=== PATIENT | male | born 1945 | race Caucasian/White ===

== ENCOUNTER 2017-08-16 06:32 | Day surgery (SDC) | payer OTHER ==
[2017-08-16] MEDS ORDERED: LIDOCAINE 1% 20 ML MDV ID STA (07:15)
[2017-08-16] MEDS ORDERED: DIPRIVAN 20 ML VIAL IVP ONE (08:48)
[2017-08-16] MEDS ORDERED: VERSED ONE (08:48)
[2017-08-16 10:21] VITALS: BP 118/67; TEMP 98.9
--- NOTE | 2017-08-17 08:59 | OP ---
INDICATIONS FOR PROCEDURE: 72 year old gentleman presents for colonoscopy examination. He has past history of polyps unknown histology with last colonoscopy 5 years ago. MEDICATIONS: SEE ANESTHESIA NOTES. PROCEDURE: COLONOSCOPY SNARE POLYPECTOMY. REPORT: The risks, benefits, alternatives and limitations were discussed in detail with the patient. Informed consent was obtained. After adequate sedation was achieved, a digital rectal exam revealed good tone, no masses. The colonoscope was introduced into the rectum and advanced under direct visual guidance to the cecum. The cecum was identified by the appendiceal orifice and IC valve. I then slowly withdrew the scope in circumferential manner and examined the mucosa quite carefully. I looked on the proximal and distal sides of the folds and flexures as best as possible. I was able to retroflex the scope in the right colon and the left colon to increase visualization. In the transverse colon there was sessile 9mm polyp that I was able to remove with snare technique. There were small mouth diverticuli scatter throughout the entire left colon. No other abnormalities were noted including on retroflex view of the anal canal. The prep was good and the withdraw time was 12 minutes 16 seconds. The patient tolerated the procedure well with stable vital signs and pulse oximetry throughout. IMPRESSION: 1. Single polyp removed from the transverse colon 2. Diverticulosis RECOMMENDATIONS: 1. High fiber diet 2. Office visit as needed 3. Await pathology results. If everything is benign as expected suggest repeat colonoscopy examination again in 5 years or sooner if signs or symptoms would indicate otherwise. CC: Dr. Abner NIEVES
== END 2017-08-16 10:15 | disposition home or self-care (01) ==
LOC: SURG 06:32
PROVIDERS: ATTEND Internal Medicine Gastroenterology
DX: Z09 Encounter for follow-up examination after completed treatment for conditions other than malignant neoplasm (principal); Z86.010 Personal history of colon polyps; D12.3 Benign neoplasm of transverse colon; K57.30 Diverticulosis of large intestine without perforation or abscess without bleeding

== ENCOUNTER 2017-09-12 14:01 | Inpatient (IN) | payer OTHER ==
[2017-09-12 15:13] VITALS: BMI 22.3
[2017-09-12] MEDS ORDERED: VISTARIL INJ IM PRN (15:18)
[2017-09-12] MEDS ORDERED: NITROSTAT SL PRN (15:18)
[2017-09-12] MEDS ORDERED: ATROPINE SULFATE PFS IVP PRN (15:18)
[2017-09-12] MEDS ORDERED: TYLENOL PO PRN (15:18)
[2017-09-12] MEDS ORDERED: NON-FORMULARY MEDICATION (Meloxicam [Meloxicam] 15 MG) PO SCH (16:30)
--- NOTE | 2017-09-12 16:31 | DI ---
EXAM: Chest two view, frontal and lateral views. HISTORY: Shortness of breath. COMPARISON: 01/22/2014. FINDINGS: The heart size is normal. There is no pulmonary vascular congestion. The lungs are clear save for calcified granulomatous changes. No pleural effusion or pneumothorax is seen. No acute os seous abnormality identified. Since the prior study, there has been no significant interval change. IMPRESSION: No acute cardiopulmonary process.
[2017-09-12] MEDS ORDERED: CALCIUM CARBONATE PO SCH (17:00)
[2017-09-12] MEDS ORDERED: NON-FORMULARY MEDICATION (Pravastatin Sodium [Pravastatin Sodium] 80 MG) PO SCH (17:00)
[2017-09-12] MEDS: DEXTROSE 5%-1/2NS IV SOLUTION 1,000 ML IV SCH (17:00)
[2017-09-12] MEDS ORDERED: VITAMIN D3 PO SCH (17:00)
[2017-09-12] MEDS ORDERED: [UNRECOGNIZED DRUG - OTHER] PO SCH (17:00)
[2017-09-12] MEDS: ROCEPHIN 1 GM in SODIUM CHLORIDE 50 ML IV SCH (17:52)
[2017-09-12] MEDS: NORVASC PO SCH (17:53)
[2017-09-12] MEDS: SOLU-CORTEF 250 MG IVP SCH ×3 (17:53→23:32)
[2017-09-12] MEDS: CALCIUM 500 + VIT D 200 MG TABLET PO SCH (17:53)
[2017-09-12] MEDS: PRAVACHOL PO SCH (17:54)
[2017-09-12] MEDS: ZITHROMAX PO SCH (17:54)
[2017-09-12] MEDS: ZEBETA PO SCH (17:54)
[2017-09-12] MEDS: XOPENEX 1.25 MG NEB SCH ×2 (18:35→23:52)
[2017-09-12] MEDS: TUSSIONEX PO SCH ×2 (20:44)
[2017-09-13] MEDS ORDERED: ASPIRIN EC PO SCH (05:00)
[2017-09-13] MEDS: HYZAAR 50-12.5 MG TAB PO SCH (05:14)
[2017-09-13] MEDS: ASPIRIN EC PO SCH (05:14)
[2017-09-13] MEDS: PROTONIX PO SCH (05:14)
[2017-09-13] MEDS: ZEBETA PO SCH ×2 (05:14→17:08)
[2017-09-13] MEDS: SOLU-CORTEF 250 MG IVP SCH ×4 (05:15→23:21)
[2017-09-13] MEDS: XOPENEX 1.25 MG NEB SCH ×4 (06:20→23:00)
[2017-09-13] MEDS: DEXTROSE 5%-1/2NS IV SOLUTION 1,000 ML IV SCH (07:16)
[2017-09-13] MEDS: TUSSIONEX PO SCH ×2 (08:52→20:32)
[2017-09-13] MEDS: ROCEPHIN 1 GM in SODIUM CHLORIDE 50 ML IV SCH (08:52)
[2017-09-13] MEDS: ZITHROMAX PO SCH (08:53)
--- NOTE | 2017-09-13 08:55 | PCM.PROG ---
Attending Provider: ATTENDING PROVIDER: Dr. VERN TAYLOR This patient is seen with Amy Chavez, Nurse Practitioner. DATE OF SERVICE: 09/13/17 SUBJECTIVE: This 72 year old WHITE/ M was hospitalized 09/12/17. The patient is sitting on side of bed, alert. Shortness of breath and wheezing have improved. Flu negative. Chest x-ray showed bronchitis. REVIEW OF SYSTEMS: CONSTITUTIONAL: No night sweats. No fatigue, malaise, lethargy. No fever or chills. HEENT: Eyes: No visual changes. No eye pain. No eye discharge. ENT: No runny nose. No epistaxis. No sinus pain. No odynophagia. No congestion. RESPIRATORY: Cough and wheeze. No hemoptysis. Shortness of breath is better. CARDIOVASCULAR: No angina symptoms. No CHF symptoms. No atypical chest pain for CAD. No palpitations. No orthopnea.. GASTROINTESTINAL: No abdominal pain. No nausea or vomiting. No diarrhea or constipation. No hematemesis. No hematochezia. GENITOURINARY: No urgency. No frequency. No dysuria. No hematuria. No obstructive symptoms. No discharge. No pain. No significant abnormal bleeding. MUSCULOSKELETAL: No musculoskeletal pain; no joint swelling. NEUROLOGICAL: Awake, alert, oriented to time, place and person. No headache. No neck pain. No syncope. No seizures. No dizziness. PSYCHIATRIC: Not anxious. No depression. No suicidal thoughts. No homicidal thoughts. SKIN: No rash. No lesions. No wounds. ENDOCRINE: No unexplained weight loss. No weight gain. HEMATOLOGIC/LYMPHATIC: No anemia. No purpura. No petechiae. No prolonged or excessive bleeding. No palpable lymph nodes. PHYSICAL EXAMINATION: GENERAL: The patient is awake, alert and oriented, sitting on side of bed in no distress. VITAL SIGNS: Temperature 97.7 F, Pulse 71, Respiratory Rate 19, BP 107/58, Pulse Ox 93% HEENT: Head normocephalic, atraumatic. Eyes: Extraocular muscles are intact. Pupils are equal, round and reactive to light and accommodation. Ears: No lesions. Nose appeared normal. Throat: No exudate or erythema. NECK: Supple. No JVD, no carotid bruit. No lymphadenopathy or thyromegaly. LUNGS: Diminished breath sounds bilaterally with faint expirator wheeze significantly improved. Percussion note normal. Chest symmetrical. HEART: S1, S2, no S3. No murmurs. No cyanosis or clubbing. No ascites. Pulses: Dorsalis pedis and posterior tibial pulses +1 to +2 both sides. ABDOMEN: Soft. Non-tender. Bowel sounds active. No CVA tenderness. No mass felt. EXTREMITIES: No edema. Full range of motion of all extremities, equal. NEUROLOGIC: No focal deficit. Cranial nerves II through XII are grossly intact. No headache, no double vision or headache. SKIN: Not dry. Intact. Turgor-normal. LYMPHATIC: No palpable lymph nodes/no lymphedema. MUSCULOSKELETAL: Normal joints with no swelling. Muscle tone is normal. LAB REVIEW: 09/13/17 04:30 09/13/17 04:30 09/13/17 04:30: Sodium 138, Potassium 3.9, Chloride 102, Carbon Dioxide 27, Anion Gap 12.9, BUN 11, Creatinine 0.85, Estimated GFR (MDRD) 89.00, BUN/ Creatinine Ratio 12.94, Glucose 165 H D, Calcium 9.3, Total Bilirubin 0.6, AST 13 L, ALT 21, Alkaline Phosphatase 71, Total Protein 6.0, Albumin 3.1 L, Globulin 2.9, Albumin/Globulin Ratio 1.07 09/13/17 04:30: WBC 8.57 D, RBC 4.52 L, Hgb 14.3, Hct 39.5 L, MCV 87.4, MCH 31.6 H, MCHC 36.2 H, RDW Coeff of Dorothy 13.1, Plt Count 180, Immature Gran % (Auto ) 0.6, Neut % (Auto) 88.0, Lymph % (Auto) 9.7 L, [place] % (Auto) 1.6, Eos % (Auto ) 0.0, Baso % (Auto) 0.1, Immature Gran # (Auto) 0.1, Neut # 7.5 H, Lymph # 0.8 , [place] # 0.1 L, Eos # 0.0, Baso # 0.0 09/12/17 23:05: Total Creatine Kinase 58, Troponin I 0.0100 09/12/17 16:00: Urine Color Yellow, Urine Clarity Clear, Urine pH 7.0, Ur Specific [place] 1.020, Urine Protein Trace, Urine Glucose (UA) Negative, Urine Ketones Negative, Urine Blood Trace-intact, Urine Nitrite Negative, Urine Bilirubin Negative, Urine Urobilinogen 1.0, Ur Leukocyte Esterase Negative, Urine Microscopic RBC 2-5, Urine Microscopic WBC 2-5, Ur Squamous Epith Cells Not present 09/12/17 15:45: Influenza A (Rapid) Negative by naat, Influenza B (Rapid) Negative by naat 09/12/17 15:41: Sodium 140, Potassium 3.9, Chloride 101, Carbon Dioxide 29, Anion Gap 13.9, BUN 10, Creatinine 1.05, Estimated GFR (MDRD) 70.00, BUN/ Creatinine Ratio 9.52, Glucose 87, Calcium 9.7, Total Bilirubin 1.3 H, AST 16, ALT 26, Alkaline Phosphatase 88, Total Creatine Kinase 49, Troponin I < 0.0100, Total Protein 6.7, Albumin 3.6, Globulin 3.1, Albumin/Globulin Ratio 1.16 09/12/17 15:41: WBC 14.10 H, RBC 4.87, Hgb 15.7, Hct 42.8, MCV 87.9, MCH 32.2 H , MCHC 36.7 H, RDW Coeff of Dorothy 13.2, Plt Count 190, Immature Gran % (Auto) 0.4 , Neut % (Auto) 79.9, Lymph % (Auto) 13.8, [place] % (Auto) 5.2, Eos % (Auto) 0.4, Baso % (Auto) 0.3, Immature Gran # (Auto) 0.1, Neut # 11.3 H, Lymph # 1.9, [place] # 0.7, Eos # 0.1, Baso # 0.0 09/12/17 15:27: Puncture Site Rb, O2 Saturation 94.0 L, ABG pH 7.514 H*, ABG pCO2 32.8 L, ABG pO2 62.0 L, ABG HCO3 26.4 H, ABG Total CO2 27, ABG Base Excess 3 H, FiO2 % 21.0 ASSESSMENT: 1. ACUTE BRONCHITIS 2. COPD EXACERBATION 3. FEVER 4. SHORTNESS OF BREATH IMPROVED PLAN: 1. D/C IV fluids 2. pft tomorrow 3. continue iv antibiotics and steroids Plan and coordination of the patient's care discussed in the presence of Movie Editor and nurse. CONDITION: Stable SCRIBED BY: ETIENNE ARAUZ, Spreader Operator scribed while in presence of service performed by Dr. Taylor/Amy Chavez APRN on 09/13/17 ([id number])
[2017-09-13] MEDS ORDERED: MOBIC PO SCH (17:00)
[2017-09-13] MEDS: NORVASC PO SCH (17:07)
[2017-09-13] MEDS: CALCIUM 500 + VIT D 200 MG TABLET PO SCH (17:08)
[2017-09-13] MEDS: PRAVACHOL PO SCH (17:08)
[2017-09-13] MEDS ORDERED: XANAX PO SCH (21:00)
[2017-09-14] MEDS: XOPENEX 1.25 MG NEB SCH ×2 (05:05→11:11)
[2017-09-14] MEDS: HYZAAR 50-12.5 MG TAB PO SCH (06:41)
[2017-09-14] MEDS: PROTONIX PO SCH (06:42)
[2017-09-14] MEDS: ASPIRIN EC PO SCH (06:42)
[2017-09-14] MEDS: ZEBETA PO SCH (06:42)
[2017-09-14] MEDS: SOLU-CORTEF 250 MG IVP SCH ×2 (06:43→13:54)
[2017-09-14] MEDS: ROCEPHIN 1 GM in SODIUM CHLORIDE 50 ML IV SCH (08:36)
[2017-09-14] MEDS: ZITHROMAX PO SCH (08:36)
[2017-09-14] MEDS: TUSSIONEX PO SCH (08:36)
[2017-09-14 10:18] VITALS: BP 120/64; TEMP 97.8
--- NOTE | 2017-09-14 10:32 | PCM.PROG ---
Attending Provider: ATTENDING PROVIDER: Dr. VERN TAYLOR DATE OF SERVICE: 09/14/17 SUBJECTIVE: This 72 year old WHITE/ M was hospitalized 09/12/17 with flu type of symptoms and dehydration. The patient's condition improved remarkably. Wheezing has practically subsided. REVIEW OF SYSTEMS: CONSTITUTIONAL: Fatigue. No night sweats. No malaise, lethargy. No fever or chills. HEENT: Eyes: No visual changes. No eye pain. No eye discharge. ENT: No runny nose. No epistaxis. No sinus pain. No odynophagia. No congestion. RESPIRATORY: Cough is less. No congestion. No hemoptysis. No shortness of breath. CARDIOVASCULAR: No angina symptoms. No CHF symptoms. No atypical chest pain for CAD. No palpitations. No orthopnea.. GASTROINTESTINAL: Appetite is better. No abdominal pain. No nausea or vomiting. No diarrhea or constipation. No hematemesis. No hematochezia. GENITOURINARY: No urgency. No frequency. No dysuria. No hematuria. No obstructive symptoms. No discharge. No pain. No significant abnormal bleeding. MUSCULOSKELETAL: No musculoskeletal pain; no joint swelling. NEUROLOGICAL: Awake, alert, oriented to time, place and person. No headache. No neck pain. No syncope. No seizures. No dizziness. PSYCHIATRIC: Not anxious. No depression. No suicidal thoughts. No homicidal thoughts. SKIN: No rash. No lesions. No wounds. ENDOCRINE: No unexplained weight loss. No weight gain. HEMATOLOGIC/LYMPHATIC: No anemia. No purpura. No petechiae. No prolonged or excessive bleeding. No palpable lymph nodes. PHYSICAL EXAMINATION: GENERAL: The patient is awake, alert and oriented, sitting in bed in no distress. VITAL SIGNS: Temperature 97.5 F, Pulse 77, Respiratory Rate 16, BP 119/68, Pulse Ox 91% HEENT: Head normocephalic, atraumatic. Eyes: Extraocular muscles are intact. Pupils are equal, round and reactive to light and accommodation. Ears: No lesions. Nose appeared normal. Throat: No exudate or erythema. NECK: Supple. No JVD, no carotid bruit. No lymphadenopathy or thyromegaly. LUNGS: Harsh breath sounds with good air entry. Percussion note normal. Chest symmetrical. HEART: S1, S2, no S3. No murmurs. No cyanosis or clubbing. No ascites. Pulses: Dorsalis pedis and posterior tibial pulses +1 to +2 both sides. ABDOMEN: Soft. Non-tender. Bowel sounds active. No CVA tenderness. No mass felt. EXTREMITIES: No edema. Full range of motion of all extremities, equal. NEUROLOGIC: No focal deficit. Cranial nerves II through XII are grossly intact. No headache, no double vision or headache. SKIN: Warm and dry. Intact. Turgor-normal. LYMPHATIC: No palpable lymph nodes/no lymphedema. MUSCULOSKELETAL: Normal joints with no swelling. Muscle tone is normal. LAB REVIEW: 09/14/17 04:30 09/14/17 04:30 09/14/17 04:30: Sodium 141, Potassium 3.9, Chloride 104, Carbon Dioxide 28, Anion Gap 12.9, BUN 15, Creatinine 0.91, Estimated GFR (MDRD) 82.00, BUN/ Creatinine Ratio 16.48, Glucose 134 H, Calcium 10.0, Total Bilirubin 0.4, AST 12 L, ALT 18, Alkaline Phosphatase 65, Total Protein 5.9, Albumin 3.0 L, Globulin 2.9, Albumin/Globulin Ratio 1.03 09/14/17 04:30: WBC 15.57 H D, RBC 4.37 L, Hgb 14.0, Hct 38.7 L, MCV 88.6, MCH 32.0 H, MCHC 36.2 H, RDW Coeff of Dorothy 13.2, Plt Count 185, Immature Gran % (Auto ) 0.8, Neut % (Auto) 88.7, Lymph % (Auto) 8.0 L, [place] % (Auto) 2.4, Eos % (Auto ) 0.0, Baso % (Auto) 0.1, Immature Gran # (Auto) 0.1, Neut # 13.8 H, Lymph # 1.2 , [place] # 0.4, Eos # 0.0, Baso # 0.0 ASSESSMENT: 1. Acute bronchitis/pneumonitis 2. Chronic lung disease 3. Smoker 4. Hypertension PLAN: 1. Discharge home. 2. Will see back in 5 days. 3. Tussionex twice a day for 5 days. 4. Advised to rest. 5. PFT and echocardiogram before discharge. 6. Prednisone 10 mg b.i.d. times 5 days. 7. Keflex 500 mg b.i.d. times 5 days. Plan and coordination of the patient's care discussed in the presence of Filling Machine Set Up Mechanic and nurse. CONDITION: Stable SCRIBED BY: Jessika CANASist scribed while in presence of service performed by Dr. VERN TAYLOR on 09/14/17 ([id number])
--- NOTE | 2017-09-14 12:26 | CM.DICTOOL ---
ADMISSION: 09/12/17 14:01 DISCHARGE: 2017 DATE OF SERVICE: 09/14/17 FINAL DIAGNOSIS ACUTE BRONCHITIS/PNEUMONITIS CHRONIC LUNG DISEASE DEHYDRATION FEVER HYPERTENSION GERD BPH DIVERTICULOSIS VITAMIN D DEFICIENCY DYSLIPIDEMIA SMOKER CHOLECYSTECTOMY LAST VITALS Temp Pulse Resp BP Pulse Ox 97.8 F 65 18 120/64 93 L 09/14/17 10:00 09/14/17 10:00 09/14/17 10:00 09/14/17 10:00 09/14/17 10:00 ACTIVE HOME MEDICATIONS Alprazolam (Xanax) 0.25 mg PO BEDTIME [facility] Last Admin: 09/13/17 20:32 Dose: 0.25 mg Amlodipine Besylate (Norvasc) 5 mg PO 1700 [facility] Last Admin: 09/13/17 17:07 Dose: 5 mg Aspirin (Aspirin Ec) 81 mg PO 0500 [facility] Last Admin: 09/14/17 06:42 Dose: 81 mg Bisoprolol Fumarate (Zebeta) 5 mg PO 0500,1700 [facility] Last Admin: 09/14/17 06:42 Dose: 5 mg Calcium/Vitamin D (Calcium 500 + Vit D 200 Mg Tablet) 2 each PO QPM [facility] Last Admin: 09/13/17 17:08 Dose: 2 each HCTZ/Losartan Potassium (Hyzaar 50-12.5 Mg Tab) 0.5 tab PO 0500 [facility] Last Admin: 09/14/17 06:41 Dose: 0.5 tab Meloxicam (Mobic) 15 mg PO [id number] [facility] Last Admin: 09/13/17 17:07 Dose: 15 mg Pantoprazole Sodium (Protonix) 40 mg PO 0500 [facility] Last Admin: 09/14/17 06:42 Dose: 40 mg Pravastatin Sodium (Pravachol) 80 mg PO QPM [facility] Last Admin: 09/13/17 17:08 Dose: 80 mg ALLERGIES morphine Allergy (Unverified 11/02/16 10:44) burning and redness NEW PRESCRIPTIONS: KEFLEX 500 MG BID FOR 5 DAYS PREDNISONE 10 MG BID FOR 5 DAYS TUSSIONEX SYRUP 5 ML EVERY 12 HOURS FOR COUGH SMOKING: ADVISED TO STOP SMOKING DISEASE SPECIFIC EDUCATION: ACUTE BRONCHITIS DEHYDRATION PRESCRIPTIONS APPOINTMENT STEROIDS AND RISK OF GI UPSET, BONE DEMINERALIZATION LAB REVIEW: 09/14/17 04:30 09/14/17 04:30 09/14/17 04:30: Sodium 141, Potassium 3.9, Chloride 104, Carbon Dioxide 28, Anion Gap 12.9, BUN 15, Creatinine 0.91, Estimated GFR (MDRD) 82.00, BUN/ Creatinine Ratio 16.48, Glucose 134 H, Calcium 10.0, Total Bilirubin 0.4, AST 12 L, ALT 18, Alkaline Phosphatase 65, Total Protein 5.9, Albumin 3.0 L, Globulin 2.9, Albumin/Globulin Ratio 1.03 09/14/17 04:30: WBC 15.57 H D, RBC 4.37 L, Hgb 14.0, Hct 38.7 L, MCV 88.6, MCH 32.0 H, MCHC 36.2 H, RDW Coeff of Dorothy 13.2, Plt Count 185, Immature Gran % (Auto ) 0.8, Neut % (Auto) 88.7, Lymph % (Auto) 8.0 L, [place] % (Auto) 2.4, Eos % (Auto ) 0.0, Baso % (Auto) 0.1, Immature Gran # (Auto) 0.1, Neut # 13.8 H, Lymph # 1.2 , [place] # 0.4, Eos # 0.0, Baso # 0.0 PLAN: DISCHARGE HOME DIET: CONSISTENT CARBOHYDRATES, INCREASED LIQUIDS ENCOURAGED ACTIVITY: GRADUALLY RESUME TOLERATED REST AN APPOINTMENT IS SCHEDULED WITH DR. TAYLOR/MARICARMEN HILL APRN ON AT 9 AM CONTINUE MEDICATIONS LISTED ON NURSING DISCHARGE INFORMATION SHEET MR. SANTAMARIA IS ALERT AND ORIENTED X 3. HE IS INDEPENDENT WITH ACTIVITIES OF DAILY LIVING AND IS AMBULATORY WITHOUT USE OF OXYGEN OR ASSISTIVE DEVICE. HE DENIES NAUSEA AND REPORTS HIS APPETITE HAS IMPROVED SINCE HIS ADMISSION WITH MEAL INTAKES OF 90-100% YESTERDAY AND TODAY. NO REPORTS OF SHORTNESS OF BREATH. NO WHEEZES. OXYGEN SATURATION 91-93% ON ROOM AIR. SKIN IS INTACT AND FREE OF RASHES, IRRITATION OR DECUBITUS ULCERS. VERN TAYLOR MD
--- NOTE | 2017-09-15 12:26 | ECHO2D ---
Date of Exam: 09/14/17 Ordering Physician: DR. VERN TAYLOR Room #: 109 Reason for Echo: SOB, HYPERTENSION, EVALUATE LEFT VENTRICLE FUNCTION M-Mode Normal Adult Results LV Dimensions Normal Adult Results AoV Opening excursions >1.6 >1.6 LVEDD-base- 3.5-5.8 5.5 Ao root dimensions 2.0-3.7 4.0 LVESD-base- 3.1-4.6 L. Atrium dimensions 1.9-3.8 4.0 Post. Wall thickness 0.8-1.1 1.2 IV septum (thickness) 0.7-1.2 1.2 Post. Wall excursion 0.72-1.3 NORMAL Septal motion NORMAL Systolic motion R. Ventricular cavity 1.5-2.0 NORMAL LVEF 60% 69% Paradoxical septal wall motion NORMAL 2-D : 2-D M Mode Echocardiogram was performed using apical four chamber and left parasternal long and short axis views. Mitral, tricuspid and aortic valves appear to be normal. Contractility of the left ventricle seems to be normal, so is the cavity size. Left atrial cavity size and aortic root appear to be normal. There is no pericardial effusion. There is no thrombus noted in the left ventricular or left aortic cavity. No mitral valve prolapse noted. M-MODE: MV: NORMAL AV: NORMAL TV: NORMAL PV: CHAMBER SIZE: NORMAL WALL MOTION: NORMAL PERICARDIUM: NORMAL INTERPRETATION: 1. LEFT VENTRICULAR HYPERTROPHY WITH MILDLY ENLARGED LEFT ATRIAL CAVITY 2. NORMAL LEFT VENTRICULAR EJECTION FRACTION 3. NORMAL VALVES MTDD
--- NOTE | 2017-09-15 13:03 | PN ---
DATE OF SERVICE: 09/13/17 SUBJECTIVE: 72 year old white male hospitalized with acute bronchitis, pneumonitis and dehydration. The patient's condition has improved remarkably. PHYSICAL EXAMINATION: HEENT: Head normocephalic, atraumatic. Eyes: Extraocular muscles are intact. Pupils are equal, round and reactive to light and accommodation. Ears: No lesions. Nose appeared normal. Throat: No exudate or erythema. NECK: Supple. No JVD, no carotid bruit. No lymphadenopathy or thyromegaly. LUNGS: Wheezing is much less. Percussion note normal. Chest symmetrical. HEART: S1, S2, no S3. No murmurs. No cyanosis or clubbing. No ascites. Pulses: Dorsalis pedis and posterior tibial pulses +1 to +2 both sides. ABDOMEN: Soft. Nontender. Bowel sounds active. No CVA tenderness. No mass felt. EXTREMITIES: No edema. Full range of motion of all extremities, equal. NEUROLOGIC: No focal deficit. Cranial nerves II through XII are grossly intact. No headache, no double vision or headache. SKIN: Not dry. Intact. Turgor - normal. LYMPHATIC: No palpable lymph nodes/no lymphedema. MUSCULOSKELETAL: Normal joints with no swelling. Muscle tone is normal. The patient was seen and examined with Nurse Practitioner. PLAN: 1. Will do PFT 2. The patient is strongly advised to quit smoking 3. Counseling steroids, NEBS and antibiotics. TIME SPENT: More than 30 minutes. Plan and coordination of the patient's care discussed in the presence of nurse. EZEQUIEL
--- NOTE | 2017-09-15 15:41 | DS ---
DATE OF SERVICE: 09/14/17 FINAL DIAGNOSIS: 1. Acute bronchitis/pneumonitis 2. Chronic lung disease 3. Dehydration 4. Fever 5. Hypertension 6. GERD 7. BPH 8. Diverticulosis 9. Vitamin D deficiency 10.Dyslipidemia 11.Smoker 12.Cholecystectomy LAST VITALS: Temperature 97.8, pulse 65, respiratory rate 18, blood pressure 120/64 and pulse ox 93%. DISCHARGE INSTRUCTIONS: Discharge home. An appointment is schedule with Dr. Levine/Laina Chavez APRN on September 19 at 9am. Continue medications as listed on nursing discharge information sheet. MEDICATIONS AT DISCHARGE: Xanax 0.25mg PO bedtime Norvasc 5mg PO 1700 Aspirin 81mg PO daily Zebeta 5mg PO 0500 and 1700 Calcium 500+Vitamin D 200mg two each PO QPM Hyzaar 50-125mg 0.5 tablet PO 0500 Mobic 15mg PO TUWETHFRSA at 1700 Protonix 40mg PO Pravachol 80mg PO QPM ALLERGIES: Morphine NEW PRESCRIPTIONS: Keflex 500mg twice a day for 5 days Prednisone 10mg twice a day for 5 days Tussionex syrup 5ml every 12 hour for cough DIET INSTRUCTIONS: Consistent carbohydrates, increase liquids encouraged ACTIVITY: Gradually resume as tolerated, rest SMOKING: Advised to stop smoking DISEASE SPECIFIC EDUCATION: Acute bronchitis Dehydration Prescription s Appointment Steroids and Risk of GI upset, bone demineralization. HOSPITAL COURSE: 72 year old white male hospitalized with acute bronchitis/pneumonitis. His condition improved remarkably with Rocephin and Zithromax combination and steroids with NEBS treatments. He was feeling a lot better. He was up and about ready to go home. The patient's other problems are severe chronic lung disease. His PFT showed 45% of predicted FEV1. He was explained about these findings. His echo showed borderline enlargement of LV cavity with mildly enlarged LA cavity with LVH. He was advised to undergo stress test which he declined at present time. Coronary artery disease risk factors discussed with him. Counseling for smoking done. The patient was discharged on steroids and antibiotics. Side effects of steroids including cataracts, osteoporosis, Avascular necrosis of femoral heads discussed. TIME SPENT: More than [address] [facility]
--- NOTE | 2017-09-15 15:42 | PN ---
09/12/17: Level 5 09/13/17: Intermediate 09/14/17: D as in discharge MTDD
== END 2017-09-14 14:25 | disposition home or self-care (01) | DRG 192 ==
LOC: MEDSURG A 14:01
PROVIDERS: ADMIT Internal Medicine; ATTEND Internal Medicine
DX: J44.0 Chronic obstructive pulmonary disease with (acute) lower respiratory infection (principal); J44.1 Chronic obstructive pulmonary disease with (acute) exacerbation; E86.0 Dehydration; R50.9 Fever, unspecified; R06.02 Shortness of breath; I10 Essential (primary) hypertension; K21.9 Gastro-esophageal reflux disease without esophagitis; N40.0 Benign prostatic hyperplasia without lower urinary tract symptoms; K57.90 Diverticulosis of intestine, part unspecified, without perforation or abscess without bleeding; E78.5 Hyperlipidemia, unspecified; F17.210 Nicotine dependence, cigarettes, uncomplicated; Z90.49 Acquired absence of other specified parts of digestive tract; Z79.899 Other long term (current) drug therapy
CPT/HCPCS: 36415; 80053; 81001; 82550; 82803; 84484; 85025; 87070; 87186; 87502; 93005; 93010; 94640; 99223; 99232; 99239